=== PATIENT | female | born 1940 | race Caucasian/White ===

== ENCOUNTER → 2016-12-28 | Outpatient (CLI) | payer MEDICARE, BC, OTHER ==
[2016-12-28 12:22] LABS: ALBUMIN 3.8 GM/DL (3.2-5.2); ALBUMIN/GLOBULIN RATIO 1.12 (1.00-1.93); ALKALINE PHOSPHATASE 95 U/L (45-117); ALT/SGPT 29 U/L (12-78); ANION GAP 8 MEQ/L (8-16); AST/SGOT 23 U/L (15-37); BILIRUBIN,TOTAL 0.5 MG/DL (0.2-1.0); BLOOD UREA NITROGEN 22 MG/DL (7-18); CALCIUM LEVEL 9.1 MG/DL (8.8-10.2); CARBON DIOXIDE LEVEL 28 MEQ/L (21-32); CHLORIDE LEVEL 100 MEQ/L (98-107); GLOMERULAR FILTRATION RATE 39.1 (>39); GLUCOSE, FASTING 112 MG/DL (83-110); POTASSIUM SERUM 4.3 MEQ/L (3.5-5.1); SODIUM LEVEL 136 MEQ/L (136-145); TOTAL PROTEIN 7.2 GM/DL (6.4-8.2)
[2016-12-28 13:59] LABS: MEAN CORPUSCULAR HEMOGLOBIN 30.8 pg (27.0-33.0); MEAN CORPUSCULAR HGB CONC 34.8 g/dl (32.0-36.5); MEAN CORPUSCULAR VOLUME 88.3 fl (80.0-96.0); RED CELL DISTRIBUTION WIDTH 13.4 % (11.5-14.5); WHITE BLOOD COUNT 9.6 K/mm3 (4.0-10.0)
[2016-12-28 14:11] LABS: BASOPHILS 1 % (0-4); EOSINOPHILS 1 % (0-5)
[2016-12-28 14:15] LABS: ANISOCYTOSIS 1+; HYPOCHROMASIA 1+
[2016-12-28 14:47] LABS: ERYTHROCYTE SEDIMENTATION RATE 14 mm/hr (0-30)
== END ==
LOC: M WUC 10:34
PROVIDERS: ATTEND Physician Assistant
DX: R07.9 Chest pain, unspecified (principal)

== ENCOUNTER → 2018-02-03 | Outpatient (CLI) | payer MEDICARE, BC, OTHER ==
[2018-02-03 17:18] LABS: BASO # 0.1 10^3/uL (0.0-0.2); BASO % 0.8 % (0.0-1.0); EOS # 0.2 10^3/uL (0.0-0.50); EOS % 1.9 % (0.0-3.0); HEMATOCRIT 33.9 % (36.0-47.0); HEMOGLOBIN 11.9 g/dl (12.0-15.5); IMMATURE GRANULOCYTE % 0.9 % (0-3.0); LYMPH # 1.7 10^3/uL (1.5-4.5); LYMPH % 17.7 % (24.0-44.0); MEAN CORPUSCULAR HEMOGLOBIN 29.8 pg (27.0-33.0); MEAN CORPUSCULAR HGB CONC 35.1 g/dl (32.0-36.5); MONO # 0.7 10^3/uL (0.0-0.8); MONO % 7.7 % (0.0-5.0); NEUTROPHILS # 6.8 10^3/uL (1.8-7.7); PLATELET COUNT, AUTOMATED 306 10^3/uL (150-450); RED BLOOD COUNT 3.99 10^6/uL (4.00-5.40); RED CELL DISTRIBUTION WIDTH 12.5 % (11.5-14.5); WHITE BLOOD COUNT 9.6 10^3/uL (4.0-10.0)
[2018-02-03 18:07] LABS: ALBUMIN 3.8 GM/DL (3.2-5.2); ALBUMIN/GLOBULIN RATIO 1.12 (1.00-1.93); ALKALINE PHOSPHATASE 90 U/L (45-117); ALT/SGPT 27 U/L (12-78); ANION GAP 7 MEQ/L (8-16); AST/SGOT 14 U/L (7-37); BILIRUBIN,TOTAL 0.3 MG/DL (0.2-1.0); BLOOD UREA NITROGEN 21 MG/DL (7-18); CALCIUM LEVEL 9.4 MG/DL (8.8-10.2); CARBON DIOXIDE LEVEL 27 MEQ/L (21-32); CHLORIDE LEVEL 95 MEQ/L (98-107); CK-MB VALUE MASS 1.2 NG/ML (<3.6); CPK CREATINE PHOSPHOKINASE 52 U/L (26-192); GLOMERULAR FILTRATION RATE 42.5 (>39); GLUCOSE, FASTING 134 MG/DL (70-100); POTASSIUM SERUM 4.3 MEQ/L (3.5-5.1); SODIUM LEVEL 129 MEQ/L (136-145); TOTAL PROTEIN 7.2 GM/DL (6.4-8.2); TROPONIN I < 0.02 NG/ML (< 0.10)
== END ==
LOC: M WUC 16:00
DX: E87.1 Hypo-osmolality and hyponatremia (principal)
CPT/HCPCS: 82550

== ENCOUNTER → 2018-02-24 | Outpatient (CLI) | payer MEDICARE, BC, OTHER ==
[2018-02-24 19:55] LABS: OSMOLALITY SERUM 274 MOSM/KG (280-301)
[2018-02-24 19:59] LABS: OSMOLALITY URINE 488 MOSM/KG (500-800)
[2018-02-24 20:07] LABS: ALBUMIN 3.6 GM/DL (3.2-5.2); ALKALINE PHOSPHATASE 93 U/L (45-117); ALT/SGPT 26 U/L (12-78); ANION GAP 10 MEQ/L (8-16); AST/SGOT 15 U/L (7-37); BILIRUBIN,TOTAL 0.3 MG/DL (0.2-1.0); BLOOD UREA NITROGEN 11 MG/DL (7-18); CALCIUM LEVEL 8.5 MG/DL (8.8-10.2); CARBON DIOXIDE LEVEL 25 MEQ/L (21-32); CHLORIDE LEVEL 100 MEQ/L (98-107); GLOMERULAR FILTRATION RATE 51.5 (>39); GLUCOSE, FASTING 98 MG/DL (70-100); POTASSIUM SERUM 3.6 MEQ/L (3.5-5.1); SODIUM LEVEL 135 MEQ/L (136-145); TOTAL PROTEIN 6.6 GM/DL (6.4-8.2)
== END ==
LOC: M WUC 14:27
DX: E87.1 Hypo-osmolality and hyponatremia (principal)

== ENCOUNTER → 2018-02-24 | Outpatient (CLI) | payer MEDICARE, BC, OTHER ==
[2018-02-24 21:13] LABS: ERYTHROCYTE SEDIMENTATION RATE 24 mm/hr (0-30)
[2018-03-01 00:07] LABS: ANCA-ATYPICAL <1:20 titer (Neg:<1:20); ANTI-SACCHAROMYCES CEREV. IgA <20.0 Units (0.0-24.9); ANTI-SACCHAROMYCES CEREV. IgG <20.0 Units (0.0-24.9); CYTOPLASMIC NEUTROP AB ANCA-C <1:20 titer (Neg:<1:20); PERINUCLEAR AB ANCA-P <1:20 titer (Neg:<1:20)
== END ==
LOC: M WUC 14:32
DX: R13.10 Dysphagia, unspecified (principal); K21.9 Gastro-esophageal reflux disease without esophagitis; E87.1 Hypo-osmolality and hyponatremia
CPT/HCPCS: 83930

== ENCOUNTER → 2018-03-06 | Outpatient (REF) | payer MEDICARE, BC, OTHER ==
[2018-03-06 18:25] LABS: OSMOLALITY SERUM 281 MOSM/KG (280-301)
[2018-03-06 18:28] LABS: OSMOLALITY URINE 334 MOSM/KG (500-800)
== END ==
LOC: M LAB REF 17:18
DX: E87.1 Hypo-osmolality and hyponatremia (principal)
CPT/HCPCS: 83930

== ENCOUNTER 2018-05-15 14:21 | Emergency (ER) | payer MEDICARE, BC, OTHER ==
[2018-05-15] MEDS: cloNIDine 0.1 MG TAB PO (15:53)
[2018-05-15] MEDS: OLMESARTAN MEDOXOMIL 20 MG TAB (BENICAR) PO (15:55)
[2018-05-15] MEDS: LABETALOL HCL 100 MG/20 ML VIAL IV (15:57)
[2018-05-15 16:10] LABS: BASO # 0.1 10^3/uL (0.0-0.2); BASO % 0.9 % (0.0-1.0); EOS # 0.2 10^3/uL (0.0-0.50); EOS % 1.8 % (0.0-3.0); HEMATOCRIT 38.4 % (36.0-47.0); HEMOGLOBIN 13.1 g/dl (12.0-15.5); IMMATURE GRANULOCYTE % 0.6 % (0-3.0); LYMPH # 1.6 10^3/uL (1.5-4.5); LYMPH % 17.6 % (24.0-44.0); MEAN CORPUSCULAR HEMOGLOBIN 29.6 pg (27.0-33.0); MEAN CORPUSCULAR HGB CONC 34.1 g/dl (32.0-36.5); MEAN CORPUSCULAR VOLUME 86.9 fl (80.0-96.0); MONO # 0.7 10^3/uL (0.0-0.8); MONO % 7.6 % (0.0-5.0); NEUTROPHILS # 6.5 10^3/uL (1.8-7.7); NEUTROPHILS % 71.5 % (36.0-66.0); PLATELET COUNT, AUTOMATED 264 10^3/uL (150-450); RED BLOOD COUNT 4.42 10^6/uL (4.00-5.40); RED CELL DISTRIBUTION WIDTH 13.1 % (11.5-14.5)
[2018-05-15 16:14] LABS: INR 0.98; PROTHROMBIN TIME 13.1 SECONDS (12.1-14.4)
[2018-05-15 16:15] LABS: PARTIAL THROMBOPLASTIN TIME 31.5 SECONDS (25.4-37.6)
[2018-05-15 16:31] LABS: ANION GAP 7 MEQ/L (8-16); BLOOD UREA NITROGEN 12 MG/DL (7-18); CARBON DIOXIDE LEVEL 30 MEQ/L (21-32); CHLORIDE LEVEL 100 MEQ/L (98-107); CK-MB VALUE MASS 1.1 NG/ML (<3.6); CPK CREATINE PHOSPHOKINASE 77 U/L (26-192); CREATININE FOR GFR 1.04 MG/DL (0.55-1.30); GLUCOSE, FASTING 120 MG/DL (70-100); MB/CK RELATIVE INDEX 1.42 (< OR =4); POTASSIUM SERUM 3.2 MEQ/L (3.5-5.1); SODIUM LEVEL 137 MEQ/L (136-145); TROPONIN I < 0.02 NG/ML (< 0.10)
[2018-05-15] MEDS: POTASSIUM CHLORIDE 10 MEQ SR TABLET PO (17:21)
== END 2018-05-15 17:39 | disposition home or self-care (01) ==
LOC: M ED 14:21
DX: I10 Essential (primary) hypertension (principal); R94.31 Abnormal electrocardiogram [ECG] [EKG]; I67.81 Acute cerebrovascular insufficiency; G31.9 Degenerative disease of nervous system, unspecified; E78.9 Disorder of lipoprotein metabolism, unspecified; Z88.8 Allergy status to other drugs, medicaments and biological substances; Z88.1 Allergy status to other antibiotic agents; Z88.0 Allergy status to penicillin; Z88.2 Allergy status to sulfonamides; Z79.899 Other long term (current) drug therapy
CPT/HCPCS: 71046

== ENCOUNTER 2018-05-22 11:25 | Emergency (ER) | payer MEDICARE, BC, OTHER ==
[2018-05-22 13:25] LABS: BASO # 0.1 10^3/uL (0.0-0.2); BASO % 0.9 % (0.0-1.0); EOS # 0.1 10^3/uL (0.0-0.50); EOS % 1.4 % (0.0-3.0); HEMATOCRIT 38.7 % (36.0-47.0); HEMOGLOBIN 13.2 g/dl (12.0-15.5); IMMATURE GRANULOCYTE % 0.4 % (0-3.0); LYMPH # 1.3 10^3/uL (1.5-4.5); LYMPH % 14.4 % (24.0-44.0); MEAN CORPUSCULAR HEMOGLOBIN 29.3 pg (27.0-33.0); MEAN CORPUSCULAR HGB CONC 34.1 g/dl (32.0-36.5); MONO # 0.6 10^3/uL (0.0-0.8); MONO % 6.5 % (0.0-5.0); NEUTROPHILS # 6.9 10^3/uL (1.8-7.7); NEUTROPHILS % 76.4 % (36.0-66.0); PLATELET COUNT, AUTOMATED 280 10^3/uL (150-450)
[2018-05-22] MEDS: METOPROLOL 5 MG/5 ML VIAL IV (13:27)
[2018-05-22] MEDS: NS 500 ML IV (13:27)
[2018-05-22] MEDS: METOCLOPRAMIDE INJ 10MG/2ML VIAL (J2765) IV (13:27)
[2018-05-22] MEDS: KETOROLAC 30 MG/ML VIAL (J1885) IV (13:29)
[2018-05-22 13:50] LABS: ANION GAP 11 MEQ/L (8-16); BLOOD UREA NITROGEN 16 MG/DL (7-18); CALCIUM LEVEL 9.5 MG/DL (8.8-10.2); CARBON DIOXIDE LEVEL 25 MEQ/L (21-32); CHLORIDE LEVEL 99 MEQ/L (98-107); CPK CREATINE PHOSPHOKINASE 59 U/L (26-192); CREATININE FOR GFR 1.08 MG/DL (0.55-1.30); GLOMERULAR FILTRATION RATE 52.7 (>39); GLUCOSE, FASTING 110 MG/DL (70-100); POTASSIUM SERUM 3.7 MEQ/L (3.5-5.1); SODIUM LEVEL 135 MEQ/L (136-145); TROPONIN I < 0.02 NG/ML (< 0.10)
[2018-05-22 13:51] LABS: CK-MB VALUE MASS < 1.0 NG/ML (<3.6); MB/CK RELATIVE INDEX 1.69 (< OR =4)
[2018-05-22] MEDS: MORPHINE 4 MG/ML 1ML VIAL/SYRINGE (J2270) IV (14:38)
[2018-05-22] MEDS: cloNIDine 0.2 MG TAB PO (15:24)
== END 2018-05-22 17:10 | disposition home or self-care (01) ==
LOC: M ED 11:25
DX: I10 Essential (primary) hypertension (principal); R51 Headache; E78.00 Pure hypercholesterolemia, unspecified; Z87.442 Personal history of urinary calculi; Z79.899 Other long term (current) drug therapy; Z88.0 Allergy status to penicillin; Z88.2 Allergy status to sulfonamides; Z88.1 Allergy status to other antibiotic agents; Z88.8 Allergy status to other drugs, medicaments and biological substances
CPT/HCPCS: J2270

== ENCOUNTER → 2018-05-26 | Outpatient (REF) | payer MEDICARE, OTHER | LOC: M LAB REF 14:21 | DX: I10 Essential (primary) hypertension (principal) ==

== ENCOUNTER 2018-05-27 10:25 | Inpatient (IN) | payer MEDICARE, BC, OTHER ==
[2018-05-27 12:39] LABS: HEMATOCRIT 40.4 % (36.0-47.0); HEMOGLOBIN 13.7 g/dl (12.0-15.5); MEAN CORPUSCULAR HEMOGLOBIN 29.5 pg (27.0-33.0); MEAN CORPUSCULAR HGB CONC 33.9 g/dl (32.0-36.5); MEAN CORPUSCULAR VOLUME 86.9 fl (80.0-96.0); PLATELET COUNT, AUTOMATED 274 10^3/uL (150-450); RED BLOOD COUNT 4.65 10^6/uL (4.00-5.40)
[2018-05-27] MEDS: NS 1,000 ML IV (12:45)
[2018-05-27] MEDS: ONDANSETRON 4MG/2ML VIAL (J2405) IV (12:48)
[2018-05-27] MEDS: HYDROMORPHONE HCL 0.5 MG/ 0.5 ML SYRINGE (J1170 PER 1) IV ×2 (12:48→13:40)
[2018-05-27 12:52] LABS: ALBUMIN 3.6 GM/DL (3.2-5.2); ALKALINE PHOSPHATASE 92 U/L (45-117); ALT/SGPT 23 U/L (12-78); ANION GAP 9 MEQ/L (8-16); AST/SGOT 14 U/L (7-37); BILIRUBIN,TOTAL 0.4 MG/DL (0.2-1.0); BLOOD UREA NITROGEN 12 MG/DL (7-18); CALCIUM LEVEL 9.1 MG/DL (8.8-10.2); CARBON DIOXIDE LEVEL 27 MEQ/L (21-32); CHLORIDE LEVEL 100 MEQ/L (98-107); CREATININE FOR GFR 1.15 MG/DL (0.55-1.30); GLUCOSE, FASTING 104 MG/DL (70-100); POTASSIUM SERUM 3.9 MEQ/L (3.5-5.1); SODIUM LEVEL 136 MEQ/L (136-145); TOTAL PROTEIN 7.6 GM/DL (6.4-8.2)
[2018-05-27 13:00] LABS: ERYTHROCYTE SEDIMENTATION RATE 7 mm/hr (0-30)
[2018-05-27] MEDS: KETOROLAC 30 MG/ML VIAL (J1885) IV (14:01)
[2018-05-27] MEDS: hydrALAZINE INJ 20 MG/ML VIAL IV (16:48)
[2018-05-27] MEDS ORDERED: ACETAMINOPHEN TAB 650MG DOSE (2X325MG) PO (17:45)
[2018-05-27] MEDS: SPIRONOLACTONE 25 MG TAB PO (18:26)
[2018-05-27] MEDS: amLODIPine 5 MG TAB PO (18:27)
[2018-05-27] MEDS ORDERED: ISOVUE-370 76% 100ML VIAL (Q9967) As Ordered (19:04)
[2018-05-27] MEDS: EXCEDRIN MIGRAINE TABLET PO (19:30)
[2018-05-27] MEDS: OMEPRAZOLE 20 MG CAP PO ×2 (20:29→20:39)
[2018-05-27] MEDS: PRAVASTATIN 20 MG TAB PO (20:29)
[2018-05-27] MEDS: CARVedilol 6.25 MG TAB PO (20:30)
[2018-05-27] MEDS: cloNIDine 0.1 MG TAB PO (20:30)
[2018-05-27] MEDS: OLMESARTAN MEDOXOMIL 20 MG TAB (BENICAR) PO (20:36)
[2018-05-28] MEDS: EXCEDRIN MIGRAINE TABLET PO ×2 (00:25→07:34)
[2018-05-28] MEDS ORDERED: HYDROCHLOROthiazide 6.25MG PER 1/4TAB PO (09:00)
[2018-05-28] MEDS ORDERED: BISOPROLOL FUMARATE 10 MG TAB PO (09:00)
[2018-05-28] MEDS: ISOSORBIDE MON. (IMDUR) 30 MG XR TAB PO (09:06)
[2018-05-28] MEDS: cloNIDine 0.1 MG TAB PO ×2 (09:06→20:15)
[2018-05-28] MEDS: CARVedilol 6.25 MG TAB PO ×2 (09:06→20:33)
[2018-05-28] MEDS: CHLORTHALIDONE 12.5MG PER 1/2 TABLET PO (09:06)
[2018-05-28] MEDS: ENOXAPARIN 40 MG/0.4 ML SYRINGE (J1650) SC ×2 (09:07→09:14)
[2018-05-28] MEDS: OMEPRAZOLE 20 MG CAP PO ×2 (09:07→20:27)
[2018-05-28 09:45] LABS: BASO % 0.4 % (0.0-1.0); EOS # 0.1 10^3/uL (0.0-0.50); EOS % 1.1 % (0.0-3.0); HEMATOCRIT 38.3 % (36.0-47.0); HEMOGLOBIN 13.2 g/dl (12.0-15.5); IMMATURE GRANULOCYTE % 0.4 % (0-3.0); LYMPH # 1.3 10^3/uL (1.5-4.5); LYMPH % 14.5 % (24.0-44.0); MEAN CORPUSCULAR HEMOGLOBIN 29.4 pg (27.0-33.0); MEAN CORPUSCULAR HGB CONC 34.5 g/dl (32.0-36.5); MEAN CORPUSCULAR VOLUME 85.3 fl (80.0-96.0); MONO # 0.6 10^3/uL (0.0-0.8); MONO % 6.5 % (0.0-5.0); NEUTROPHILS # 6.9 10^3/uL (1.8-7.7); NEUTROPHILS % 77.1 % (36.0-66.0); PLATELET COUNT, AUTOMATED 249 10^3/uL (150-450); RED BLOOD COUNT 4.49 10^6/uL (4.00-5.40); RED CELL DISTRIBUTION WIDTH 12.8 % (11.5-14.5)
[2018-05-28 10:07] LABS: ALBUMIN 3.5 GM/DL (3.2-5.2); ALBUMIN/GLOBULIN RATIO 1.06 (1.00-1.93); ALKALINE PHOSPHATASE 100 U/L (45-117); ALT/SGPT 19 U/L (12-78); ANION GAP 10 MEQ/L (8-16); AST/SGOT 17 U/L (7-37); BILIRUBIN,TOTAL 0.5 MG/DL (0.2-1.0); BLOOD UREA NITROGEN 11 MG/DL (7-18); CALCIUM LEVEL 8.8 MG/DL (8.8-10.2); CARBON DIOXIDE LEVEL 25 MEQ/L (21-32); CHLORIDE LEVEL 97 MEQ/L (98-107); CREATININE FOR GFR 1.05 MG/DL (0.55-1.30); GLOMERULAR FILTRATION RATE 54.4 (>39); GLUCOSE, FASTING 111 MG/DL (70-100); POTASSIUM SERUM 4.1 MEQ/L (3.5-5.1); SODIUM LEVEL 132 MEQ/L (136-145); TOTAL PROTEIN 6.8 GM/DL (6.4-8.2)
[2018-05-28] MEDS: SPIRONOLACTONE 25 MG TAB PO (12:49)
[2018-05-28] MEDS: FIORICET TAB PO ×2 (15:22→21:47)
[2018-05-28] MEDS: OLMESARTAN MEDOXOMIL 20 MG TAB (BENICAR) PO (20:32)
[2018-05-28] MEDS: PRAVASTATIN 20 MG TAB PO (20:33)
[2018-05-29 06:30] LABS: BASO # 0.1 10^3/uL (0.0-0.2); BASO % 0.5 % (0.0-1.0); EOS # 0.2 10^3/uL (0.0-0.50); HEMOGLOBIN 12.8 g/dl (12.0-15.5); IMMATURE GRANULOCYTE % 0.5 % (0-3.0); LYMPH # 1.8 10^3/uL (1.5-4.5); LYMPH % 16.1 % (24.0-44.0); MEAN CORPUSCULAR HEMOGLOBIN 29.6 pg (27.0-33.0); MEAN CORPUSCULAR HGB CONC 34.6 g/dl (32.0-36.5); MEAN CORPUSCULAR VOLUME 85.5 fl (80.0-96.0); MONO # 0.9 10^3/uL (0.0-0.8); MONO % 8.4 % (0.0-5.0); NEUTROPHILS % 72.5 % (36.0-66.0); PLATELET COUNT, AUTOMATED 228 10^3/uL (150-450); RED BLOOD COUNT 4.33 10^6/uL (4.00-5.40); RED CELL DISTRIBUTION WIDTH 12.8 % (11.5-14.5); WHITE BLOOD COUNT 11.1 10^3/uL (4.0-10.0)
[2018-05-29] MEDS: CHLORTHALIDONE 12.5MG PER 1/2 TABLET PO (06:50)
[2018-05-29] MEDS: ISOSORBIDE MON. (IMDUR) 30 MG XR TAB PO (06:51)
[2018-05-29] MEDS: FIORICET TAB PO ×3 (06:51→20:43)
[2018-05-29] MEDS: OMEPRAZOLE 20 MG CAP PO ×2 (06:51→20:43)
[2018-05-29] MEDS: cloNIDine 0.1 MG TAB PO (06:52)
[2018-05-29] MEDS: CARVedilol 6.25 MG TAB PO (06:52)
[2018-05-29 07:03] LABS: ALBUMIN 3.4 GM/DL (3.2-5.2); ALBUMIN/GLOBULIN RATIO 0.97 (1.00-1.93); ALKALINE PHOSPHATASE 93 U/L (45-117); ALT/SGPT 17 U/L (12-78); ANION GAP 8 MEQ/L (8-16); AST/SGOT 13 U/L (7-37); BILIRUBIN,TOTAL 0.5 MG/DL (0.2-1.0); BLOOD UREA NITROGEN 10 MG/DL (7-18); CALCIUM LEVEL 8.7 MG/DL (8.8-10.2); CARBON DIOXIDE LEVEL 26 MEQ/L (21-32); CHLORIDE LEVEL 96 MEQ/L (98-107); CREATININE FOR GFR 1.05 MG/DL (0.55-1.30); GLOMERULAR FILTRATION RATE 54.4 (>39); GLUCOSE, FASTING 93 MG/DL (70-100); POTASSIUM SERUM 3.4 MEQ/L (3.5-5.1); SODIUM LEVEL 130 MEQ/L (136-145); TOTAL PROTEIN 6.9 GM/DL (6.4-8.2)
[2018-05-29] MEDS ORDERED: SLF 3 ML SYR IV (09:45)
[2018-05-29] MEDS: **hydrALAZINE** 10 MG TAB PO ×3 (11:25→20:42)
[2018-05-29] MEDS: SLF 3 ML SYR IV ×2 (14:00→20:50)
[2018-05-29] MEDS ORDERED: PILL CRUSHER/CUTTER 1 EACH XX (15:30)
[2018-05-29] MEDS: traMADol 50 MG TAB PO (15:48)
[2018-05-29] MEDS: OLMESARTAN MEDOXOMIL 20 MG TAB (BENICAR) PO (20:42)
[2018-05-29] MEDS: PRAVASTATIN 20 MG TAB PO (20:43)
[2018-05-29] MEDS: CARVedilol 12.5 MG TAB PO (20:44)
[2018-05-30 05:47] LABS: BASO # 0.1 10^3/uL (0.0-0.2); BASO % 0.7 % (0.0-1.0); EOS # 0.3 10^3/uL (0.0-0.50); HEMATOCRIT 38.1 % (36.0-47.0); HEMOGLOBIN 13.4 g/dl (12.0-15.5); IMMATURE GRANULOCYTE % 0.7 % (0-3.0); LYMPH # 2.1 10^3/uL (1.5-4.5); LYMPH % 19.2 % (24.0-44.0); MEAN CORPUSCULAR HEMOGLOBIN 29.4 pg (27.0-33.0); MEAN CORPUSCULAR HGB CONC 35.2 g/dl (32.0-36.5); MEAN CORPUSCULAR VOLUME 83.6 fl (80.0-96.0); MONO # 1.2 10^3/uL (0.0-0.8); MONO % 11.2 % (0.0-5.0); NEUTROPHILS % 65.2 % (36.0-66.0); PLATELET COUNT, AUTOMATED 247 10^3/uL (150-450); RED BLOOD COUNT 4.56 10^6/uL (4.00-5.40); RED CELL DISTRIBUTION WIDTH 12.8 % (11.5-14.5); WHITE BLOOD COUNT 10.7 10^3/uL (4.0-10.0)
[2018-05-30 06:04] LABS: ALBUMIN 3.6 GM/DL (3.2-5.2); ALBUMIN/GLOBULIN RATIO 1.03 (1.00-1.93); ALKALINE PHOSPHATASE 97 U/L (45-117); ALT/SGPT 18 U/L (12-78); ANION GAP 10 MEQ/L (8-16); AST/SGOT 15 U/L (7-37); BILIRUBIN,TOTAL 0.4 MG/DL (0.2-1.0); BLOOD UREA NITROGEN 10 MG/DL (7-18); CARBON DIOXIDE LEVEL 25 MEQ/L (21-32); CHLORIDE LEVEL 97 MEQ/L (98-107); CREATININE FOR GFR 0.98 MG/DL (0.55-1.30); GLOMERULAR FILTRATION RATE 58.9 (>39); GLUCOSE, FASTING 96 MG/DL (70-100); POTASSIUM SERUM 3.5 MEQ/L (3.5-5.1); SODIUM LEVEL 132 MEQ/L (136-145); TOTAL PROTEIN 7.1 GM/DL (6.4-8.2)
[2018-05-30] MEDS: OMEPRAZOLE 20 MG CAP PO ×2 (06:44→20:32)
[2018-05-30] MEDS: ENOXAPARIN 40 MG/0.4 ML SYRINGE (J1650) SC (06:44)
[2018-05-30] MEDS: CARVedilol 12.5 MG TAB PO ×2 (06:47→20:32)
[2018-05-30] MEDS: **hydrALAZINE** 10 MG TAB PO ×3 (06:48→20:32)
[2018-05-30] MEDS: ISOSORBIDE MON. (IMDUR) 30 MG XR TAB PO (06:49)
[2018-05-30] MEDS: SLF 3 ML SYR IV ×3 (06:49→20:32)
[2018-05-30] MEDS: FIORICET TAB PO ×3 (10:02→18:43)
[2018-05-30] MEDS: ASPIRIN 325 MG TAB PO (11:31)
[2018-05-30] MEDS ORDERED: cloNIDine 0.1 MG TAB PO (18:45)
[2018-05-30] MEDS: PRAVASTATIN 20 MG TAB PO (20:32)
[2018-05-30] MEDS: OLMESARTAN MEDOXOMIL 20 MG TAB (BENICAR) PO (20:36)
[2018-05-31 05:30] LABS: BASO # 0.1 10^3/uL (0.0-0.2); BASO % 0.7 % (0.0-1.0); EOS # 0.3 10^3/uL (0.0-0.50); EOS % 2.7 % (0.0-3.0); HEMATOCRIT 38.7 % (36.0-47.0); HEMOGLOBIN 13.6 g/dl (12.0-15.5); IMMATURE GRANULOCYTE % 0.7 % (0-3.0); LYMPH # 2.1 10^3/uL (1.5-4.5); LYMPH % 20.4 % (24.0-44.0); MEAN CORPUSCULAR HEMOGLOBIN 29.2 pg (27.0-33.0); MEAN CORPUSCULAR HGB CONC 35.1 g/dl (32.0-36.5); MEAN CORPUSCULAR VOLUME 83.2 fl (80.0-96.0); MONO % 9.6 % (0.0-5.0); NEUTROPHILS # 6.8 10^3/uL (1.8-7.7); NEUTROPHILS % 65.9 % (36.0-66.0); PLATELET COUNT, AUTOMATED 253 10^3/uL (150-450); RED BLOOD COUNT 4.65 10^6/uL (4.00-5.40); WHITE BLOOD COUNT 10.3 10^3/uL (4.0-10.0)
[2018-05-31 05:48] LABS: ALBUMIN 3.5 GM/DL (3.2-5.2); ALBUMIN/GLOBULIN RATIO 0.95 (1.00-1.93); ALKALINE PHOSPHATASE 99 U/L (45-117); ALT/SGPT 19 U/L (12-78); ANION GAP 11 MEQ/L (8-16); AST/SGOT 14 U/L (7-37); BILIRUBIN,TOTAL 0.3 MG/DL (0.2-1.0); BLOOD UREA NITROGEN 12 MG/DL (7-18); CARBON DIOXIDE LEVEL 23 MEQ/L (21-32); CHLORIDE LEVEL 96 MEQ/L (98-107); CREATININE FOR GFR 1.12 MG/DL (0.55-1.30); GLOMERULAR FILTRATION RATE 50.5 (>39); GLUCOSE, FASTING 99 MG/DL (70-100); POTASSIUM SERUM 3.4 MEQ/L (3.5-5.1); SODIUM LEVEL 130 MEQ/L (136-145); TOTAL PROTEIN 7.2 GM/DL (6.4-8.2)
[2018-05-31] MEDS: SLF 3 ML SYR IV ×3 (06:00→20:27)
[2018-05-31] MEDS: OMEPRAZOLE 20 MG CAP PO ×2 (08:28→20:25)
[2018-05-31] MEDS: **hydrALAZINE** 10 MG TAB PO ×3 (08:28→20:26)
[2018-05-31] MEDS: ENOXAPARIN 40 MG/0.4 ML SYRINGE (J1650) SC (08:28)
[2018-05-31] MEDS: CARVedilol 12.5 MG TAB PO ×2 (08:28→20:27)
[2018-05-31] MEDS: PRAVASTATIN 20 MG TAB PO (20:25)
[2018-05-31] MEDS: OLMESARTAN MEDOXOMIL 20 MG TAB (BENICAR) PO (20:26)
[2018-06-01] MEDS: FIORICET TAB PO ×2 (04:09→04:39)
[2018-06-01 06:29] LABS: BASO # 0.1 10^3/uL (0.0-0.2); BASO % 0.7 % (0.0-1.0); EOS # 0.3 10^3/uL (0.0-0.50); HEMATOCRIT 39.7 % (36.0-47.0); HEMOGLOBIN 14.1 g/dl (12.0-15.5); IMMATURE GRANULOCYTE % 0.6 % (0-3.0); LYMPH # 1.9 10^3/uL (1.5-4.5); LYMPH % 20.7 % (24.0-44.0); MEAN CORPUSCULAR HEMOGLOBIN 29.9 pg (27.0-33.0); MEAN CORPUSCULAR HGB CONC 35.5 g/dl (32.0-36.5); MEAN CORPUSCULAR VOLUME 84.1 fl (80.0-96.0); MONO % 10.2 % (0.0-5.0); NEUTROPHILS # 6.1 10^3/uL (1.8-7.7); NEUTROPHILS % 64.8 % (36.0-66.0); PLATELET COUNT, AUTOMATED 268 10^3/uL (150-450); RED BLOOD COUNT 4.72 10^6/uL (4.00-5.40); RED CELL DISTRIBUTION WIDTH 13.1 % (11.5-14.5); WHITE BLOOD COUNT 9.4 10^3/uL (4.0-10.0)
[2018-06-01] MEDS: SLF 3 ML SYR IV (06:44)
[2018-06-01] MEDS: **hydrALAZINE** 10 MG TAB PO (06:46)
[2018-06-01] MEDS: CARVedilol 12.5 MG TAB PO (06:47)
[2018-06-01 06:48] LABS: ALBUMIN 3.5 GM/DL (3.2-5.2); ALBUMIN/GLOBULIN RATIO 0.97 (1.00-1.93); ALKALINE PHOSPHATASE 100 U/L (45-117); ALT/SGPT 20 U/L (12-78); ANION GAP 11 MEQ/L (8-16); AST/SGOT 18 U/L (7-37); BILIRUBIN,TOTAL 0.4 MG/DL (0.2-1.0); BLOOD UREA NITROGEN 11 MG/DL (7-18); CALCIUM LEVEL 8.9 MG/DL (8.8-10.2); CARBON DIOXIDE LEVEL 23 MEQ/L (21-32); CHLORIDE LEVEL 98 MEQ/L (98-107); CREATININE FOR GFR 1.03 MG/DL (0.55-1.30); GLOMERULAR FILTRATION RATE 55.6 (>39); GLUCOSE, FASTING 94 MG/DL (70-100); POTASSIUM SERUM 3.7 MEQ/L (3.5-5.1); SODIUM LEVEL 132 MEQ/L (136-145); TOTAL PROTEIN 7.1 GM/DL (6.4-8.2)
[2018-06-01] MEDS ORDERED: SENOKOT S TAB PO (08:45)
[2018-06-01] MEDS ORDERED: MOM 30ML SUSPENSION UDC PO (08:45)
[2018-06-01] MEDS: ENOXAPARIN 40 MG/0.4 ML SYRINGE (J1650) SC (09:00)
[2018-06-01] MEDS: OMEPRAZOLE 20 MG CAP PO (10:06)
[2018-06-02 08:32] LABS: ALDOS/RENIN RATIO 24.9 (0.0-30.0); ALDOSTERONE 5.2 ng/dL (0.0-30.0); RENIN ACTIVITY 0.209 ng/mL/hr (0.167-5.380)
[2018-06-02 08:32] LABS: RENIN LEVEL <0.167 ng/mL/hr (0.167-5.380)
== END 2018-06-01 11:45 | disposition home or self-care (01) | DRG 305 ==
LOC: M ED 10:25 → M ED INP 16:49 → M PCU 19:02
DX: I16.0 Hypertensive urgency (principal); E87.1 Hypo-osmolality and hyponatremia; I10 Essential (primary) hypertension; Z66 Do not resuscitate; E78.5 Hyperlipidemia, unspecified; R51 Headache; K21.9 Gastro-esophageal reflux disease without esophagitis; D35.00 Benign neoplasm of unspecified adrenal gland; Z90.710 Acquired absence of both cervix and uterus; Z90.49 Acquired absence of other specified parts of digestive tract; Z79.899 Other long term (current) drug therapy; Z88.0 Allergy status to penicillin; Z88.2 Allergy status to sulfonamides; Z88.1 Allergy status to other antibiotic agents; Z88.8 Allergy status to other drugs, medicaments and biological substances

== ENCOUNTER 2018-06-30 12:22 | Inpatient (IN) | payer MEDICARE, BC, OTHER ==
[2018-06-30 13:02] LABS: HEMATOCRIT 34.5 % (36.0-47.0); MEAN CORPUSCULAR HEMOGLOBIN 29.2 pg (27.0-33.0); MEAN CORPUSCULAR HGB CONC 34.8 g/dl (32.0-36.5); MEAN CORPUSCULAR VOLUME 83.9 fl (80.0-96.0); PLATELET COUNT, AUTOMATED 318 10^3/uL (150-450); RED BLOOD COUNT 4.11 10^6/uL (4.00-5.40); RED CELL DISTRIBUTION WIDTH 13.7 % (11.5-14.5); WHITE BLOOD COUNT 10.3 10^3/uL (4.0-10.0)
[2018-06-30 13:23] LABS: INR 1.02; PROTHROMBIN TIME 13.5 SECONDS (12.1-14.4)
[2018-06-30 13:24] LABS: PARTIAL THROMBOPLASTIN TIME 29.5 SECONDS (25.4-37.6)
[2018-06-30 14:18] LABS: ALBUMIN 3.2 GM/DL (3.2-5.2); ALBUMIN/GLOBULIN RATIO 0.94 (1.00-1.93); ALKALINE PHOSPHATASE 89 U/L (45-117); ALT/SGPT 41 U/L (12-78); ANION GAP 8 MEQ/L (8-16); AST/SGOT 20 U/L (7-37); BILIRUBIN,TOTAL 0.4 MG/DL (0.2-1.0); BLOOD UREA NITROGEN 13 MG/DL (7-18); CALCIUM LEVEL 9.1 MG/DL (8.8-10.2); CARBON DIOXIDE LEVEL 28 MEQ/L (21-32); CHLORIDE LEVEL 91 MEQ/L (98-107); CREATININE FOR GFR 0.86 MG/DL (0.55-1.30); GLOMERULAR FILTRATION RATE > 60.0 (>39); GLUCOSE, FASTING 98 MG/DL (70-100); MAGNESIUM LEVEL 2.1 MG/DL (1.8-2.4); POTASSIUM SERUM 3.2 MEQ/L (3.5-5.1); SODIUM LEVEL 127 MEQ/L (136-145); TOTAL PROTEIN 6.6 GM/DL (6.4-8.2)
[2018-06-30 14:32] LABS: OSMOLALITY SERUM 259 MOSM/KG (280-301)
[2018-06-30] MEDS ORDERED: OLMESARTAN MEDOXOMIL 20 MG TAB (BENICAR) PO ×2 (16:15→21:00)
[2018-06-30] MEDS ORDERED: ONDANSETRON 4MG/2ML VIAL (J2405) IV (16:30)
[2018-06-30] MEDS: POTASSIUM CHLORIDE 10 MEQ SR TABLET PO ×2 (18:06→21:05)
[2018-06-30] MEDS: **hydrALAZINE** 10 MG TAB PO ×2 (18:07→21:04)
[2018-06-30 18:33] LABS: ANION GAP 7 MEQ/L (8-16); BLOOD UREA NITROGEN 10 MG/DL (7-18); CALCIUM LEVEL 8.2 MG/DL (8.8-10.2); CARBON DIOXIDE LEVEL 29 MEQ/L (21-32); CHLORIDE LEVEL 92 MEQ/L (98-107); CREATININE FOR GFR 0.81 MG/DL (0.55-1.30); GLOMERULAR FILTRATION RATE > 60.0 (>39); GLUCOSE, FASTING 117 MG/DL (70-100); POTASSIUM SERUM 3.5 MEQ/L (3.5-5.1); SODIUM LEVEL 128 MEQ/L (136-145)
[2018-06-30 18:33] LABS: URIC ACID 3.2 MG/DL (2.6-6.0)
[2018-06-30 18:37] LABS: CPK CREATINE PHOSPHOKINASE 41 U/L (26-192); MB/CK RELATIVE INDEX 3.17 (< OR =4)
[2018-06-30] MEDS: SODIUM CHLORIDE 1 GM TAB PO (21:02)
[2018-06-30] MEDS: PRAVASTATIN 20 MG TAB PO (21:02)
[2018-06-30] MEDS: ACETAMINOPHEN TAB 650MG DOSE (2X325MG) PO (21:03)
[2018-06-30] MEDS: CARVedilol 12.5 MG TAB PO (21:04)
[2018-06-30] MEDS: GABAPENTIN 100 MG CAP PO (21:05)
[2018-06-30 21:38] LABS: OSMOLALITY URINE 179 MOSM/KG (500-800)
[2018-06-30 22:02] LABS: CREATININE,RANDOM URINE 29.9 MG/DL; SODIUM,RANDOM URINE 29 MEQ/L
[2018-06-30 22:34] LABS: ANION GAP 7 MEQ/L (8-16); BLOOD UREA NITROGEN 10 MG/DL (7-18); CALCIUM LEVEL 8.3 MG/DL (8.8-10.2); CARBON DIOXIDE LEVEL 28 MEQ/L (21-32); CHLORIDE LEVEL 93 MEQ/L (98-107); CREATININE FOR GFR 0.75 MG/DL (0.55-1.30); GLOMERULAR FILTRATION RATE > 60.0 (>39); GLUCOSE, FASTING 136 MG/DL (70-100); POTASSIUM SERUM 3.4 MEQ/L (3.5-5.1); SODIUM LEVEL 128 MEQ/L (136-145)
[2018-07-01] MEDS: ACETAMINOPHEN TAB 650MG DOSE (2X325MG) PO (02:12)
[2018-07-01 02:57] LABS: CPK CREATINE PHOSPHOKINASE 28 U/L (26-192); MB/CK RELATIVE INDEX 3.93 (< OR =4)
[2018-07-01] MEDS: GABAPENTIN 100 MG CAP PO ×3 (03:15→21:14)
[2018-07-01 03:25] LABS: ANION GAP 8 MEQ/L (8-16); BLOOD UREA NITROGEN 10 MG/DL (7-18); CALCIUM LEVEL 8.1 MG/DL (8.8-10.2); CARBON DIOXIDE LEVEL 26 MEQ/L (21-32); CHLORIDE LEVEL 95 MEQ/L (98-107); CREATININE FOR GFR 0.72 MG/DL (0.55-1.30); GLOMERULAR FILTRATION RATE > 60.0 (>39); GLUCOSE, FASTING 91 MG/DL (70-100); POTASSIUM SERUM 4.1 MEQ/L (3.5-5.1); SODIUM LEVEL 129 MEQ/L (136-145)
[2018-07-01 06:49] LABS: BASO # 0.1 10^3/uL (0.0-0.2); EOS % 11.4 % (0.0-3.0); HEMATOCRIT 31.9 % (36.0-47.0); HEMOGLOBIN 10.9 g/dl (12.0-15.5); IMMATURE GRANULOCYTE % 0.6 % (0-3.0); LYMPH # 1.3 10^3/uL (1.5-4.5); MEAN CORPUSCULAR HEMOGLOBIN 28.5 pg (27.0-33.0); MEAN CORPUSCULAR HGB CONC 34.2 g/dl (32.0-36.5); MEAN CORPUSCULAR VOLUME 83.5 fl (80.0-96.0); MONO # 0.8 10^3/uL (0.0-0.8); MONO % 9.2 % (0.0-5.0); NEUTROPHILS # 5.4 10^3/uL (1.8-7.7); NEUTROPHILS % 62.8 % (36.0-66.0); PLATELET COUNT, AUTOMATED 301 10^3/uL (150-450); RED BLOOD COUNT 3.82 10^6/uL (4.00-5.40); RED CELL DISTRIBUTION WIDTH 13.7 % (11.5-14.5); WHITE BLOOD COUNT 8.6 10^3/uL (4.0-10.0)
[2018-07-01 07:03] LABS: ANION GAP 10 MEQ/L (8-16); BLOOD UREA NITROGEN 9 MG/DL (7-18); CALCIUM LEVEL 8.1 MG/DL (8.8-10.2); CARBON DIOXIDE LEVEL 24 MEQ/L (21-32); CHLORIDE LEVEL 96 MEQ/L (98-107); CREATININE FOR GFR 0.75 MG/DL (0.55-1.30); GLOMERULAR FILTRATION RATE > 60.0 (>39); GLUCOSE, FASTING 106 MG/DL (70-100); MAGNESIUM LEVEL 1.9 MG/DL (1.8-2.4); POTASSIUM SERUM 4.3 MEQ/L (3.5-5.1); SODIUM LEVEL 130 MEQ/L (136-145)
[2018-07-01] MEDS: SODIUM CHLORIDE 1 GM TAB PO ×3 (09:30→17:24)
[2018-07-01] MEDS: **hydrALAZINE** 10 MG TAB PO ×3 (09:31→21:14)
[2018-07-01] MEDS: buPROPion **XL** TABLET 150MG (WELLBUTRIN XL) PO (09:31)
[2018-07-01] MEDS: CARVedilol 12.5 MG TAB PO ×2 (09:32→21:14)
[2018-07-01 10:23] LABS: ANION GAP 8 MEQ/L (8-16); BLOOD UREA NITROGEN 9 MG/DL (7-18); CALCIUM LEVEL 8.6 MG/DL (8.8-10.2); CARBON DIOXIDE LEVEL 26 MEQ/L (21-32); CHLORIDE LEVEL 94 MEQ/L (98-107); CREATININE FOR GFR 0.94 MG/DL (0.55-1.30); GLOMERULAR FILTRATION RATE > 60.0 (>39); GLUCOSE, FASTING 185 MG/DL (70-100); POTASSIUM SERUM 4.3 MEQ/L (3.5-5.1); SODIUM LEVEL 128 MEQ/L (136-145)
[2018-07-01 10:27] LABS: CPK CREATINE PHOSPHOKINASE 33 U/L (26-192); MB/CK RELATIVE INDEX 3.33 (< OR =4)
[2018-07-01] MEDS ORDERED: SENOKOT S TAB PO (11:00)
[2018-07-01] MEDS: MOM 30ML SUSPENSION UDC PO (11:35)
[2018-07-01] MEDS: METHOCARBAMOL 750 MG TAB PO ×3 (12:08→21:14)
[2018-07-01] MEDS: ENOXAPARIN 40 MG/0.4 ML SYRINGE (J1650) SC (12:11)
[2018-07-01] MEDS: IBUPROFEN 400 MG TAB PO ×2 (14:26→21:15)
[2018-07-01 18:36] LABS: ANION GAP 8 MEQ/L (8-16); BLOOD UREA NITROGEN 10 MG/DL (7-18); CALCIUM LEVEL 8.2 MG/DL (8.8-10.2); CARBON DIOXIDE LEVEL 26 MEQ/L (21-32); CHLORIDE LEVEL 95 MEQ/L (98-107); CREATININE FOR GFR 0.77 MG/DL (0.55-1.30); GLOMERULAR FILTRATION RATE > 60.0 (>39); GLUCOSE, FASTING 96 MG/DL (70-100); POTASSIUM SERUM 4.2 MEQ/L (3.5-5.1); SODIUM LEVEL 129 MEQ/L (136-145)
[2018-07-01] MEDS: PRAVASTATIN 20 MG TAB PO (21:13)
[2018-07-02] MEDS: IBUPROFEN 400 MG TAB PO (05:26)
[2018-07-02] MEDS: GABAPENTIN 100 MG CAP PO ×3 (06:00→20:25)
[2018-07-02 06:48] LABS: BASO # 0.1 10^3/uL (0.0-0.2); BASO % 1.3 % (0.0-1.0); EOS # 0.9 10^3/uL (0.0-0.50); EOS % 11.9 % (0.0-3.0); HEMATOCRIT 30.9 % (36.0-47.0); HEMOGLOBIN 10.8 g/dl (12.0-15.5); IMMATURE GRANULOCYTE % 0.8 % (0-3.0); LYMPH # 1.3 10^3/uL (1.5-4.5); LYMPH % 16.5 % (24.0-44.0); MEAN CORPUSCULAR HEMOGLOBIN 28.8 pg (27.0-33.0); MEAN CORPUSCULAR VOLUME 82.4 fl (80.0-96.0); MONO # 0.7 10^3/uL (0.0-0.8); MONO % 9.4 % (0.0-5.0); NEUTROPHILS # 4.6 10^3/uL (1.8-7.7); NEUTROPHILS % 60.1 % (36.0-66.0); PLATELET COUNT, AUTOMATED 289 10^3/uL (150-450); RED BLOOD COUNT 3.75 10^6/uL (4.00-5.40); RED CELL DISTRIBUTION WIDTH 13.9 % (11.5-14.5); WHITE BLOOD COUNT 7.6 10^3/uL (4.0-10.0)
[2018-07-02 07:11] LABS: MAGNESIUM LEVEL 2.3 MG/DL (1.8-2.4)
[2018-07-02] MEDS: ENOXAPARIN 40 MG/0.4 ML SYRINGE (J1650) SC (08:11)
[2018-07-02] MEDS: SODIUM CHLORIDE 1 GM TAB PO ×3 (08:11→18:28)
[2018-07-02] MEDS: CARVedilol 12.5 MG TAB PO ×2 (08:12→20:24)
[2018-07-02] MEDS: buPROPion **XL** TABLET 150MG (WELLBUTRIN XL) PO (08:12)
[2018-07-02] MEDS: METHOCARBAMOL 750 MG TAB PO ×3 (08:13→20:23)
[2018-07-02] MEDS: **hydrALAZINE** 10 MG TAB PO ×3 (08:13→20:25)
[2018-07-02 16:40] LABS: SODIUM LEVEL 132 MEQ/L (136-145)
[2018-07-02] MEDS: SLF 3 ML SYR IV ×2 (18:29→20:26)
[2018-07-02] MEDS: PRAVASTATIN 20 MG TAB PO (20:23)
[2018-07-02] MEDS: ACETAMINOPHEN TAB 650MG DOSE (2X325MG) PO (20:26)
[2018-07-02] MEDS: oxyCODONE 5MG TAB PO (22:18)
[2018-07-03] MEDS: GABAPENTIN 100 MG CAP PO ×3 (05:57→22:21)
[2018-07-03] MEDS: SLF 3 ML SYR IV ×3 (05:58→22:22)
[2018-07-03] MEDS: traMADol 50 MG TAB PO ×3 (05:58→22:25)
[2018-07-03 07:19] LABS: BASO # 0.1 10^3/uL (0.0-0.2); BASO % 1.4 % (0.0-1.0); EOS % 12.4 % (0.0-3.0); HEMATOCRIT 31.5 % (36.0-47.0); HEMOGLOBIN 10.9 g/dl (12.0-15.5); IMMATURE GRANULOCYTE % 0.8 % (0-3.0); LYMPH # 1.4 10^3/uL (1.5-4.5); LYMPH % 18.2 % (24.0-44.0); MEAN CORPUSCULAR HEMOGLOBIN 28.8 pg (27.0-33.0); MEAN CORPUSCULAR HGB CONC 34.6 g/dl (32.0-36.5); MEAN CORPUSCULAR VOLUME 83.3 fl (80.0-96.0); MONO # 0.9 10^3/uL (0.0-0.8); MONO % 11.5 % (0.0-5.0); NEUTROPHILS # 4.4 10^3/uL (1.8-7.7); NEUTROPHILS % 55.7 % (36.0-66.0); PLATELET COUNT, AUTOMATED 294 10^3/uL (150-450); RED BLOOD COUNT 3.78 10^6/uL (4.00-5.40); WHITE BLOOD COUNT 7.9 10^3/uL (4.0-10.0)
[2018-07-03] MEDS: ENOXAPARIN 40 MG/0.4 ML SYRINGE (J1650) SC (08:31)
[2018-07-03] MEDS: **hydrALAZINE** 10 MG TAB PO ×3 (08:32→20:37)
[2018-07-03] MEDS: buPROPion **XL** TABLET 150MG (WELLBUTRIN XL) PO (08:32)
[2018-07-03] MEDS: SODIUM CHLORIDE 1 GM TAB PO ×3 (08:33→18:17)
[2018-07-03] MEDS: CARVedilol 12.5 MG TAB PO ×2 (08:33→20:37)
[2018-07-03] MEDS: METHOCARBAMOL 750 MG TAB PO ×3 (08:33→20:37)
[2018-07-03 09:01] LABS: ALBUMIN 3.2 GM/DL (3.2-5.2); ANION GAP 8 MEQ/L (8-16); BLOOD UREA NITROGEN 10 MG/DL (7-18); CALCIUM LEVEL 8.3 MG/DL (8.8-10.2); CARBON DIOXIDE LEVEL 26 MEQ/L (21-32); CHLORIDE LEVEL 95 MEQ/L (98-107); CREATININE FOR GFR 0.85 MG/DL (0.55-1.30); GLOMERULAR FILTRATION RATE > 60.0 (>39); GLUCOSE, FASTING 147 MG/DL (70-100); POTASSIUM SERUM 4.1 MEQ/L (3.5-5.1); SODIUM LEVEL 129 MEQ/L (136-145)
[2018-07-03 09:43] LABS: ANION GAP 9 MEQ/L (8-16); BLOOD UREA NITROGEN 10 MG/DL (7-18); CALCIUM LEVEL 8.6 MG/DL (8.8-10.2); CARBON DIOXIDE LEVEL 26 MEQ/L (21-32); CHLORIDE LEVEL 96 MEQ/L (98-107); CREATININE FOR GFR 0.84 MG/DL (0.55-1.30); GLOMERULAR FILTRATION RATE > 60.0 (>39); GLUCOSE, FASTING 143 MG/DL (70-100); POTASSIUM SERUM 4.2 MEQ/L (3.5-5.1); SODIUM LEVEL 131 MEQ/L (136-145)
[2018-07-03 11:00] LABS: CORTISOL AM 13.1 UG/DL (4.3-22.4)
[2018-07-03] MEDS: TOLVAPTAN 7.5 MG HALF-TAB PO (13:40)
[2018-07-03] MEDS: IBUPROFEN 400 MG TAB PO ×2 (13:42→22:00)
[2018-07-03 20:07] LABS: ANION GAP 8 MEQ/L (8-16); BLOOD UREA NITROGEN 9 MG/DL (7-18); CALCIUM LEVEL 8.4 MG/DL (8.8-10.2); CARBON DIOXIDE LEVEL 27 MEQ/L (21-32); CHLORIDE LEVEL 99 MEQ/L (98-107); CREATININE FOR GFR 0.86 MG/DL (0.55-1.30); GLOMERULAR FILTRATION RATE > 60.0 (>39); GLUCOSE, FASTING 117 MG/DL (70-100); POTASSIUM SERUM 3.8 MEQ/L (3.5-5.1); SODIUM LEVEL 134 MEQ/L (136-145)
[2018-07-03] MEDS: PRAVASTATIN 20 MG TAB PO (20:42)
[2018-07-04] MEDS: traMADol 50 MG TAB PO (03:37)
[2018-07-04] MEDS: GABAPENTIN 100 MG CAP PO (06:40)
[2018-07-04] MEDS: SLF 3 ML SYR IV (06:41)
[2018-07-04] MEDS: IBUPROFEN 400 MG TAB PO (06:41)
[2018-07-04 07:13] LABS: BASO # 0.1 10^3/uL (0.0-0.2); EOS % 11.4 % (0.0-3.0); HEMATOCRIT 32.7 % (36.0-47.0); HEMOGLOBIN 11.1 g/dl (12.0-15.5); IMMATURE GRANULOCYTE % 0.7 % (0-3.0); LYMPH # 1.4 10^3/uL (1.5-4.5); LYMPH % 16.4 % (24.0-44.0); MEAN CORPUSCULAR HEMOGLOBIN 28.8 pg (27.0-33.0); MEAN CORPUSCULAR HGB CONC 33.9 g/dl (32.0-36.5); MEAN CORPUSCULAR VOLUME 84.7 fl (80.0-96.0); MONO # 0.9 10^3/uL (0.0-0.8); MONO % 10.6 % (0.0-5.0); NEUTROPHILS % 59.9 % (36.0-66.0); PLATELET COUNT, AUTOMATED 285 10^3/uL (150-450); RED BLOOD COUNT 3.86 10^6/uL (4.00-5.40); RED CELL DISTRIBUTION WIDTH 14.2 % (11.5-14.5); WHITE BLOOD COUNT 8.3 10^3/uL (4.0-10.0)
[2018-07-04 07:31] LABS: ANION GAP 6 MEQ/L (8-16); BLOOD UREA NITROGEN 9 MG/DL (7-18); CALCIUM LEVEL 8.4 MG/DL (8.8-10.2); CARBON DIOXIDE LEVEL 26 MEQ/L (21-32); CHLORIDE LEVEL 100 MEQ/L (98-107); CREATININE FOR GFR 0.83 MG/DL (0.55-1.30); GLOMERULAR FILTRATION RATE > 60.0 (>39); GLUCOSE, FASTING 103 MG/DL (70-100); POTASSIUM SERUM 3.8 MEQ/L (3.5-5.1); SODIUM LEVEL 132 MEQ/L (136-145)
[2018-07-04] MEDS: **hydrALAZINE** 10 MG TAB PO (09:26)
[2018-07-04] MEDS: buPROPion **XL** TABLET 150MG (WELLBUTRIN XL) PO (09:26)
[2018-07-04] MEDS: ENOXAPARIN 40 MG/0.4 ML SYRINGE (J1650) SC (09:26)
[2018-07-04] MEDS: CARVedilol 12.5 MG TAB PO (09:27)
[2018-07-04] MEDS: METHOCARBAMOL 750 MG TAB PO (09:27)
[2018-07-04] MEDS: SODIUM CHLORIDE 1 GM TAB PO (09:27)
[2018-07-04 14:16] LABS: SSA SJOGRENS A <0.2 AI (0.0-0.9); SSB SJOGRENS B <0.2 AI (0.0-0.9)
== END 2018-07-04 10:46 | disposition home or self-care (01) | DRG 641 ==
LOC: M PED 07-01 17:35 → M ED 12:22 → M ED INP 16:20 → M PCU 17:49
DX: E87.1 Hypo-osmolality and hyponatremia (principal); M51.36 Other intervertebral disc degeneration, lumbar region; M54.31 Sciatica, right side; Z66 Do not resuscitate; M25.78 Osteophyte, vertebrae; M43.16 Spondylolisthesis, lumbar region; R13.10 Dysphagia, unspecified; E87.6 Hypokalemia; I10 Essential (primary) hypertension; E78.5 Hyperlipidemia, unspecified; F41.9 Anxiety disorder, unspecified; F32.9 Major depressive disorder, single episode, unspecified; K21.9 Gastro-esophageal reflux disease without esophagitis; Z90.710 Acquired absence of both cervix and uterus; Z90.49 Acquired absence of other specified parts of digestive tract; Z79.899 Other long term (current) drug therapy; Z88.0 Allergy status to penicillin; Z88.2 Allergy status to sulfonamides; Z88.1 Allergy status to other antibiotic agents; Z88.8 Allergy status to other drugs, medicaments and biological substances; K59.09 Other constipation; D64.9 Anemia, unspecified

== ENCOUNTER → 2018-06-30 | Outpatient (CLI) | payer MEDICARE, BC, OTHER | LOC: M WUC 10:11 | DX: M51.36 Other intervertebral disc degeneration, lumbar region (principal); M25.78 Osteophyte, vertebrae; M43.16 Spondylolisthesis, lumbar region; R13.10 Dysphagia, unspecified ==

== ENCOUNTER → 2018-06-30 | Outpatient (REF) | payer MEDICARE, BC, OTHER ==
[2018-06-30 17:28] LABS: OSMOLALITY URINE 353 MOSM/KG (500-800)
[2018-06-30 17:34] LABS: OSMOLALITY SERUM 261 MOSM/KG (280-301)
[2018-06-30 17:45] LABS: CORTISOL AM 20.9 UG/DL (4.3-22.4)
[2018-07-06 08:36] LABS: ALDOSTERONE 4.7 ng/dL (0.0-30.0)
== END ==
LOC: M LAB REF 17:01
DX: E87.1 Hypo-osmolality and hyponatremia (principal)

== ENCOUNTER → 2018-07-12 | Outpatient (REF) | payer MEDICARE, OTHER ==
[2018-07-12 18:57] LABS: SODIUM,RANDOM URINE 29 MEQ/L
[2018-07-12 19:25] LABS: OSMOLALITY SERUM 274 MOSM/KG (280-301)
[2018-07-12 19:28] LABS: OSMOLALITY URINE 416 MOSM/KG (500-800)
[2018-07-12 19:47] LABS: FREE T4 1.44 NG/DL (0.76-1.46)
[2018-07-12 19:50] LABS: CORTISOL BASELINE 17.5 UG/DL (4.3-22.4)
== END ==
LOC: M LAB REF 17:53
DX: E87.1 Hypo-osmolality and hyponatremia (principal); I12.9 Hypertensive chronic kidney disease with stage 1 through stage 4 chronic kidney disease, or unspecified chronic kidney disease
CPT/HCPCS: 83930

== ENCOUNTER → 2018-07-24 | Outpatient (REF) | payer MEDICARE, OTHER | LOC: M LAB REF 12:50 | DX: E87.1 Hypo-osmolality and hyponatremia (principal) | CPT/HCPCS: 84244 ==

== ENCOUNTER 2021-05-22 08:39 | Emergency (ER) | payer MEDICARE, OTHER ==
[~2021-05-22] VITALS: Ht 157.5 cm; Wt 74.6 kg
[~2021-05-22 08:39] MED LIST: AMLO2.5T3 PO; BENI40TA26 PO; BISO10TA4 PO; BISOPRL/HCTZ; BUPR150T12 PO; CARV12.5 PO; CLON-383 PO; EPLE50TA; EPLE50TA PO; EXCETAB81 PO; GABA-1171 PO; HYDR10TAB PO; IBUP1TAB5 PO; ISOS1TAB35 PO; METH-1165 PO; OLME40TA; OMEP40CA4 PO; PRAV20TA2 PO; SODI1TAB12 PO; TRAM50TA2 PO; [UNRECOGNIZED DRUG - CODE] PO
[2021-05-22 08:40] VITALS: BP 145/90
[2021-05-22] MEDS ORDERED: TORS5TAB2 PO (08:54)
[2021-05-22] MEDS ORDERED: PRAV20TA2 PO (08:54)
[2021-05-22] MEDS ORDERED: POTA1TAB14 PO (08:54)
== END 2021-05-22 09:21 | disposition left against medical advice (07) ==
LOC: M ED 08:39
DX: Z53.21 Procedure and treatment not carried out due to patient leaving prior to being seen by health care provider (principal)

== ENCOUNTER → 2021-06-19 | Outpatient (REF) | payer MEDICARE, OTHER ==
[~2021-06-19] MED LIST changes: +POTA1TAB14 PO; +TORS5TAB2 PO
== END ==
LOC: M LAB REF 17:27
PROVIDERS: ATTEND Internal Medicine Nephrology
DX: N18.31 Chronic kidney disease, stage 3a (principal)

== ENCOUNTER → 2021-11-17 | Outpatient (REF) | payer MEDICARE, OTHER ==
[~2021-11-17] MED LIST changes: -BISO10TA4 PO; +BISO1TAB19 PO
== END ==
LOC: M LAB REF 16:40
PROVIDERS: ATTEND Nurse Practitioner Family
DX: E87.6 Hypokalemia (principal)

== ENCOUNTER → 2022-08-17 | Outpatient (REF) | payer MEDICARE, OTHER ==
[~2022-08-17] MED LIST changes: -BENI40TA26 PO; +OLME40TA56 PO
== END ==
LOC: M LAB REF 17:20
PROVIDERS: ATTEND Internal Medicine
DX: M25.50 Pain in unspecified joint (principal)